=== PATIENT | male | born 1990 | race Two or more races ===

== ENCOUNTER 2019-06-03 19:07 | Emergency (ER) | payer BC, OTHER ==
[~2019-06-03] VITALS: Ht 180.3 cm; Wt 88.5 kg
[~2019-06-03 19:07] MED LIST: ALBUPOW26 XX
[2019-06-03 21:12] VITALS: BP 143/87
[2019-06-03] MEDS ORDERED: DexAMETHasone SOD PHOS 10MG/1ML VIAL INJ IM ONE (22:15)
[2019-06-03] MEDS ORDERED: HYDROcodone-ACET 10/325MG TAB PO ONE (22:15)
== END 2019-06-03 23:00 | disposition home or self-care (01) ==
LOC: ER 19:16
DX: S86.911A Strain of unspecified muscle(s) and tendon(s) at lower leg level, right leg, initial encounter (principal); M25.461 Effusion, right knee; M23.91 Unspecified internal derangement of right knee; J45.909 Unspecified asthma, uncomplicated; Z79.899 Other long term (current) drug therapy; X58.XXXA Exposure to other specified factors, initial encounter; Y93.89 Activity, other specified; Y92.89 Other specified places as the place of occurrence of the external cause; Y99.0 Civilian activity done for income or pay
CPT/HCPCS: 29505; 73562; 96372; 99283; J1100

== ENCOUNTER 2019-07-22 17:37 | Emergency (ER) | payer OTHER ==
[~2019-07-22] VITALS: Ht 177.8 cm; Wt 93.0 kg
[2019-07-22 20:53] VITALS: BP 128/76
== END 2019-07-22 21:02 | disposition home or self-care (01) ==
LOC: ER 17:40
DX: M23.91 Unspecified internal derangement of right knee (principal); J45.909 Unspecified asthma, uncomplicated
CPT/HCPCS: 73562